=== PATIENT | female | born 1960 | race Hispanic/Latino ===

== ENCOUNTER → 2025-05-31 | Outpatient (CLI) | payer BC ==
--- NOTE | 2025-06-01 15:24 | HMCIMG ---
EXAM: MR Brain Without IV Contrast CLINICAL HISTORY: Dizziness and giddiness. TECHNIQUE: Multiplanar multi-sequence MRI of the brain. CONTRAST: No. COMPARISON: None provided. FINDINGS: Few, discrete FLAIR hyperintense signal noted in the white matter of bilateral cerebral hemispheres, likely chronic small vessel ischemic changes. No evidence of acute cortical infarction, hemorrhage, mass or mass effect. The ventricular system is normal in size, shape, and contour. No hydrocephalus. No abnormal extra-axial fluid collection is present. The marrow signal within the skull base and calvarium is intact. Small, mucus retention cyst noted in the right maxillary sinus. The remaining paranasal sinuses and mastoid air cells are clear. IMPRESSION: No acute intracranial abnormality or mass. Mild chronic small vessel ischemic changes. /[place]
== END | disposition home or self-care (01) ==
LOC: EDBD 11:30 → RAH 11:49
PROVIDERS: ATTEND Nurse Practitioner Family
DX: I67.82 Cerebral ischemia (principal); K11.6 Mucocele of salivary gland; J32.0 Chronic maxillary sinusitis; R42 Dizziness and giddiness
CPT/HCPCS: 70551